=== PATIENT | male | born 1945 | race Two or more races ===

== ENCOUNTER 2017-04-05 18:59 | Emergency (ER) | payer OTHER ==
[~2017-04-05] VITALS: Ht 165.1 cm; Wt 65.5 kg
[2017-04-05 19:12] VITALS: Ht 165.1 cm; Wt 65.5 kg
--- NOTE | 2017-04-05 20:29 | ERD ---
ER Documentation Chief Complaint Date/Time DATE: 04/05/17 TIME: 20:27 Chief Complaint difficulty peeing,lower back pain,lower abd, dribbling when urine,hematuria HPI 71-year-old man who presents the emergency room complaining of urinary retention. History provided by family. The patient had recent urinary retention in [place] and recently discontinued catheter. The patient describes a full bladder sensation, lower abdominal pain and an inability to void. The patient does have some mild dribbling. He denies any lumbar back pain chest pain or shortness of breath no fevers or chills. ROS All systems reviewed and are negative except as per history of present illness. Medications Home Meds Active Scripts Tamsulosin Hcl* (Flomax*) 0.4 Mg Cap.er.24h, 0.4 MG PO QPM, #10 CAP Prov:CHIKIS EVANGELISTA MD 04/05/17 Cephalexin* (Keflex*) 500 Mg Capsule, 500 MG PO BID for 7 Days, CAP Prov:CHIKIS EVANGELISTA MD 04/05/17 Allergies Allergies: Coded Allergies: No Known Drug Allergies (Verified Allergy, Mild, 02/08/10) PMhx/Soc History of Surgery: No Hx Neurological Disorder: No Hx Respiratory Disorders: No Hx Cardiac Disorders: No Hx Miscellaneous Medical Probl: No Hx Alcohol Use: No Hx Substance Use: No Hx Tobacco Use: No FmHx Family History: No diabetes Physical Exam Vitals Vital Signs Date Time Temp Pulse Resp B/P Pulse Ox O2 Delivery O2 Flow Rate FiO2 04/05/17 19:12 99.1 68 20 123/84 96 Physical Exam General: Well developed, well nourished, no acute distress Head: Normocephalic, atraumatic. Eyes: Pupils equally reactive, EOM intact ENT: Moist mucous membranes Neck: Supple, no lymphadenopathy Respiratory: Lungs clear bilaterally, no distress Cardiovascular: RRR, no murmurs, rubs, or gallops Abdominal: Soft, suprapubic fullness and tenderness to palpation without rebound or guarding, non-distended, no peritoneal signs : Deferred MSK: No edema, no unilateral swelling, 5/5 strength Neurologic: Alert and oriented, moving all extremities, normal speech, no focal weakness, no cerebellar signs Skin: No rash Psych: Normal mood Results 24 hrs Laboratory Tests Test 04/05/17 20:58 Bedside Urine pH (LAB) 6.5 Bedside Urine Protein (LAB) Negative Bedside Urine Glucose (UA) Negative Bedside Urine Ketones (LAB) Negative Bedside Urine Blood 2+ Bedside Urine Nitrite (LAB) Negative Bedside Urine Leukocyte Esterase (L Negative Current Medications Medications (Trade) Dose Ordered Sig/Albin Route PRN Reason Start Time Stop Time Status Last Admin Dose Admin Lidocaine (Lidocaine 2% Urojet) 20 ml ONCE ONCE MM 04/05/17 20:30 04/05/17 20:31 DC 04/05/17 20:35 Procedures/MDM The patient's symptoms are very consistent with acute urinary retention. He exhibits no signs or symptoms concerning for cauda equina, cord compression, acute intra-abdominal process such as mass. No evidence of pyelonephritis. The patient will benefit from Gerard catheter insertion. This is most likely secondary to UTI versus BPH. Outpatient urology follow-up strongly recommended. At this time no indication for diagnostic imaging. Gerard catheter placed on output of greater than 700 cc was observed. The patient has improved symptomatology. The patient will be given a leg bag and outpatient follow-up with urology. The patient will be started on Flomax. We discussed follow up with the patient's primary care doctor within 24 to 48 hours as needed. We also discussed return to the emergency room for worsening symptoms or worsening condition. Outpatient referral: [None required] Discharge Medications: Keflex, Flomax Departure Diagnosis: Primary Impression: Acute urinary retention Condition: Stable CHIKIS EVANGELISTA MD Apr 05, 2017 20:29
[2017-04-05] MEDS ORDERED: LIDOCAINE 2% 20 ML UROJET SYRINGE MM ONE (20:30)
[2017-04-05 20:54] LABS: URINE BLOOD (Dip) POC 2+ (NEGATIVE)
[2017-04-05] MEDS ORDERED: CEPH-443 PO (21:06)
[2017-04-05] MEDS ORDERED: TAMS-14 PO (21:06)
[2017-04-05 21:13] VITALS: BP 120/71; PULSE 83; RESP 20
== END 2017-04-05 21:13 | disposition home or self-care (01) ==
LOC: FTE 18:59
DX: R33.9 Retention of urine, unspecified (principal)
CPT/HCPCS: 81003; 87086